=== PATIENT | female | born 1940 | race Caucasian/White ===

== ENCOUNTER 2017-11-24 04:13 | Inpatient (IN) | payer OTHER ==
[~2017-11-24] VITALS: Ht 160 cm; Wt 81.6 kg
[~2017-11-24 04:13] MED LIST: ATENOLOL25 MG PO; BUSPIRONE HCL10 MG PO; CARAFATE100 MG/ML PO; CIPROFLOXACIN500 M1 PO; CYANOCOBAL1000 MCG/2 IM; CYCLOBENZAPRINE5 MG PO; DICLOFENAC SODI50 MG PO; FLORASTOR250 MG PO; HYDROCHLOROTHIA25 MG PO; HYDROCODON-ACE1 EAC9 PO; LORCET 5-325 M1 EACH PO; METRONIDAZOLE500 MG PO; MYLICON,MYLANTA80 MG PO; MYSOLINE50 MG PO; NEURONTIN300 MG PO; OMEPRAZOLE40 M1 PO; ONDANSETRON HCL8 MG PO; OXYCODONE HCL5 MG PO; PAXIL20 MG PO; POLYETHYLENE GL17 GM PO; PRIMIDONE50 MG PO; QUESTRAN PACKET4 GM PO; ROBAXIN500 MG PO; TRIANEX430 GM TP; VICODIN 5-3001 EACH PO; ZOCOR40 MG PO; ZOFRAN4 MG PO
[2017-12-18] MEDS ORDERED: LASIX40 MG PO (12:57)
[2017-12-18] MEDS ORDERED: K-DUR20 MEQ PO (12:57)
[2017-12-22 09:20] VITALS: BP 166/70
[2017-12-22 15:07] VITALS: BP 134/62
[2017-12-22 16:57] LABS: HEMATOCRIT 33.6 % (36.0-46.0); HEMOGLOBIN 10.9 G/DL (11.9-15.5); MCH 30.7 PG (29.0-34.0); MCHC 32.4 G/DL (30.0-36.0); MCV 94.6 FL (83-99); PLATELET COUNT 305 K/uL (156-360); RBC DIS.WIDTH-CV 13.5 % (11.8-14.6); RBC DIS.WIDTH-SD 47.1 % (39-53); RED BLOOD COUNT 3.55 M/uL (3.80-5.20); WHITE BLOOD COUNT 15.7 K/uL (4.1-10.2)
[2017-12-22 20:12] VITALS: BP 154/65
[2017-12-23 00:54] VITALS: BP 110/50
[2017-12-23 04:26] VITALS: BP 119/86
[2017-12-23 06:18] LABS: HEMATOCRIT 34.3 % (36.0-46.0); HEMOGLOBIN 11.3 G/DL (11.9-15.5); MCV 93.5 FL (83-99)
[2017-12-23 06:44] LABS: CHLORIDE 96 MEQ/L (99-109); CREATININE 0.7 MG/DL (0.6-1.3); GFR ESTIMATE (CALCULATED) > 59 mL/min/; GLUCOSE 144 mg/dL (70-99); POTASSIUM 3.1 MEQ/L (3.7-5.4); SODIUM 137 MEQ/L (136-147); UREA NITROGEN (BUN) 11 mg/dL (9-23)
[2017-12-23 08:17] VITALS: BP 118/56
[2017-12-23] MEDS ORDERED: HYDROCODON-ACE1 EAC9 PO (08:44)
[2017-12-23] MEDS ORDERED: LOVENOX40 MG/0.4 SC (08:44)
[2017-12-23 11:15] VITALS: BP 103/51
[2017-12-23 15:42] VITALS: BP 96/52
[2017-12-23 20:09] VITALS: BP 106/46
[2017-12-24] VITALS: BP 133/61
[2017-12-24 03:58] VITALS: BP 111/54
[2017-12-24 06:58] LABS: CHLORIDE 99 MEQ/L (99-109); CREATININE 0.8 MG/DL (0.6-1.3); GFR ESTIMATE (CALCULATED) > 59 mL/min/; GLUCOSE 126 mg/dL (70-99); POTASSIUM 3.4 MEQ/L (3.7-5.4); SODIUM 136 MEQ/L (136-147); UREA NITROGEN (BUN) 16 mg/dL (9-23)
[2017-12-24 07:12] VITALS: BP 108/58
[2017-12-24] MEDS ORDERED: ELIQUIS2.5 MG PO (08:22)
== END 2017-12-24 13:06 | disposition home health service (06) | DRG 470 ==
LOC: 2SOUTH → ENRESERV 12-21 21:08 → 3WEST 12-22 08:32 → 2SOUTH 12-22 08:32 → 3WEST 12-22 14:53
PROVIDERS: Orthopaedic Surgery; Physician Assistant
PROC: 0SR90JA Replacement of Right Hip Joint with Synthetic Substitute, Uncemented, Open Approach (ICD-10-PCS; principal; 2017-12-22)
DX: M16.11 Unilateral primary osteoarthritis, right hip (principal); K21.9 Gastro-esophageal reflux disease without esophagitis; I10 Essential (primary) hypertension; E78.5 Hyperlipidemia, unspecified; E11.9 Type 2 diabetes mellitus without complications; G89.29 Other chronic pain; M54.9 Dorsalgia, unspecified; Z96.642 Presence of left artificial hip joint; Z96.659 Presence of unspecified artificial knee joint; E66.9 Obesity, unspecified; Z68.31 Body mass index [BMI] 31.0-31.9, adult
CPT/HCPCS: 36415; 73501; 80048; 85014; 85018; 85027; 86850; 86900; 86901; J0131; J0690; J1170; J1650; J2250; J2405; J3370; J7050; S0020

== ENCOUNTER 2017-11-25 11:19 | Day surgery (SDC) | payer OTHER ==
[~2017-11-25] VITALS: Ht 160 cm; Wt 79.4 kg
== END 2017-11-25 17:55 | disposition home or self-care (01) ==
LOC: CATH 11:19
DX: I25.10 Atherosclerotic heart disease of native coronary artery without angina pectoris (principal); I25.82 Chronic total occlusion of coronary artery; I10 Essential (primary) hypertension; K21.9 Gastro-esophageal reflux disease without esophagitis; E78.5 Hyperlipidemia, unspecified; Z79.891 Long term (current) use of opiate analgesic; Z82.49 Family history of ischemic heart disease and other diseases of the circulatory system
CPT/HCPCS: C1769; C1887; J1644; J2250; J3010; J7040

== ENCOUNTER → 2017-12-09 | Outpatient (CLI) | payer OTHER | END | disposition home or self-care (01) | LOC: RAD 09:55 | DX: R60.0 Localized edema (principal) | CPT/HCPCS: 93970 ==